=== PATIENT | female | born 1960 | race American Indian/Alaskan Native ===

== ENCOUNTER 2020-02-12 07:27 | Outpatient (CLI) | payer OTHER ==
--- NOTE | 2020-02-12 09:22 | Ultrasound Report ---
US abdomen limited INDICATION: ELEVATED LIVER ENZYMES LEVEL COMPARISON: None. FINDINGS: Pancreas: No significant abnormality identified in the visualized portions of the pancreas. Abdominal aorta: No significant abnormality. Liver: Increased echogenicity Gallbladder: No gallbladder stones identified. No gallbladder wall thickening. No pericholecystic fl uid. Bile ducts: The common bile duct measures 1.8 mm. Right Kidney: No significant abnormality. Additional findings: No significant additional findings. IMPRESSION: Findings suggesting diffuse hepatic steatosis. Otherwise, no significant abnormality. Signer Name: Arnulfo Rockwell MD Signed: 02/12/2020 9:18 AM Workstation Name: [id number]
== END 2020-02-12 07:28 | disposition home or self-care (01) ==
LOC: US 07:27
PROVIDERS: ATTEND Family Medicine
DX: R74.8 Abnormal levels of other serum enzymes (principal)
CPT/HCPCS: 76705